=== PATIENT | female | born 1950 | race African-American/Black ===

== ENCOUNTER → 2019-07-01 | Outpatient (CLI) | payer MEDICARE, OTHER ==
[2014-12-25 12:32] VITALS: BP 149/75
[~2019-07-01] MED LIST: ACET325T9 PO; LISI10TA2 PO; MULT1TAB52 PO; OMEP20CA16 PO; SIMV40TA18 PO; SOTA80TA48 PO
--- NOTE | 2019-07-01 11:17 | RAD ---
Bone densitometry 07/01/2019 10:00 AM Indication: Screening exam Comparison Study: Bone densitometry June 14, 2015 Discussion: Bone Densitometry was performed with dual photon absorption of the lumbar spine and proximal right femur Lumbar Spine: Bone average density is 1.138 g/cm2 for L1-L4. T-Score is -0.4. (Prior T score -0.4) Right femoral neck: Bone average density is 0.744g/cm2. T-Score is -1.7. (Prior T score -1.6) IMPRESSION: Osteopenia, with bone mineral density similar to prior exam Note: Definitions established by the World Health Organization: Normal: T-score is -1.0 or above. Osteopenia: T-score is between -1.0 and -2.5. Osteoporosis: T-score is -2.5 or below. Electronically signed by: Gabriele Payne MD (07/01/2019 11:14 AM) [id number]
== END | disposition home or self-care (01) ==
LOC: DXRAD 09:34
PROVIDERS: ATTEND Family Medicine
DX: Z13.820 Encounter for screening for osteoporosis (principal); M85.88 Other specified disorders of bone density and structure, other site
CPT/HCPCS: 77080

== ENCOUNTER → 2019-12-29 | Outpatient (CLI) | payer MEDICARE, OTHER ==
[2014-12-25 12:32] VITALS: BP 149/75
[~2019-12-29] MED LIST changes: +MULT-445 PO; -MULT1TAB52 PO
--- NOTE | 2019-12-29 11:18 | RAD ---
EXAM: LEFT SHOULDER 3 VIEWS. HISTORY: Left shoulder pain after injury. COMPARISON: None. FINDINGS: No fractures are identified. A large loose body in the subacromial space measures 2.1 x 1.3 cm. There is inferior subluxation of the humeral head with respect to the glenoid. A moderate to large osteophytes indicate moderate glenohumeral osteoarthritis. Acromioclavicular osteoarthritis is mild for patient age. Inferiorly directed spurs measure 2 mm. A left-sided pacemaker has its leads in the right atrium and right ventricle. There are atherosclerotic calcifications of the aorta. IMPRESSION: 1. Moderate left glenohumeral osteoarthritis. A large loose body is in the subacromial space, interposed between the acromion and humeral head. Humeral head is inferiorly subluxed, suggesting mass effect from the loose body. Electronically signed by: Zoran Maravilla MD (12/29/2019 11:14 AM) [id number]
== END | disposition home or self-care (01) ==
LOC: DXRAD 10:13
PROVIDERS: ATTEND Family Medicine
DX: S43.032A Inferior subluxation of left humerus, initial encounter (principal); M19.012 Primary osteoarthritis, left shoulder; M24.012 Loose body in left shoulder; M25.712 Osteophyte, left shoulder; I70.0 Atherosclerosis of aorta; X58.XXXA Exposure to other specified factors, initial encounter; Y93.89 Activity, other specified; Y92.89 Other specified places as the place of occurrence of the external cause; Y99.8 Other external cause status
CPT/HCPCS: 73030

== ENCOUNTER → 2020-04-27 | Outpatient (CLI) | payer MEDICARE, OTHER ==
[2014-12-25 12:32] VITALS: BP 149/75
--- NOTE | 2020-05-02 14:08 | RAD ---
DATE: 04/27/2020 3:10 PM EXAM: MAMMO ROGE SCREENING BILATERAL HISTORY: routine screening evaluation. COMPARISON: 01/02/2017 Bilateral CC and MLO views of the breasts were performed. Bilateral breast tomosynthesis was performed in CC and MLO projections. This study was interpreted with the benefit of Computerized Aided Detection (CAD). FINDINGS: Breast Density: SCATTERED The breast parenchyma shows scattered fibroglandular densities. Breast parenchyma level B No suspicious masses, microcalcifications or architectural distortion is present to suggest malignancy in either breast. The visualized axillae are unremarkable. IMPRESSION: No mammographic evidence of malignancy. BI-RADS CATEGORY: 1 NEGATIVE RECOMMENDED FOLLOW-UP: 12M 12 MONTH FOLLOW-UP Annual screening mammography is recommended, unless clinically indicated sooner based on symptoms or change in physical exam. PQRS compliance statement: Patient information was entered into a reminder system with a target due date for the next mammogram. Mammography is a sensitive method for finding small breast cancers, but it does not detect them all and is not a substitute for careful clinical examination. A negative mammogram does not negate a clinically suspicious finding and should not result in delay in biopsying a clinically suspicious abnormality. "Our facility is accredited by the [employer] Mammography Program."
== END ==
LOC: MAMMO 15:03
PROVIDERS: ATTEND Family Medicine
DX: Z12.31 Encounter for screening mammogram for malignant neoplasm of breast (principal)
CPT/HCPCS: 77063; 77067

== ENCOUNTER → 2020-05-25 | Outpatient (CLI) | payer MEDICARE, OTHER ==
[2014-12-25 12:32] VITALS: BP 149/75
--- NOTE | 2020-05-25 15:43 | RAD ---
Noncontrast CT scan of the chest for follow-up of pulmonary nodules. No comparisons available. TECHNIQUE: Contiguous axial CT images are obtained through the chest. Sagittal and coronal reformatio ns are evaluated. IV contrast was not administered. FINDINGS: Dual-lead pacemaker is noted. No suspicious mediastinal, hilar, or axillary lymphadenopathy is evident. Cardiomegaly is present. Evaluation of the upper abdominal organs is limited by lack of IV contrast with no gross morphologic abnormalities identified. Degenerative changes of the shoulders and thoracic spine are seen with no significant osseous abnormalities identified. There is a 4 mm no dule peripherally in the lateral aspect the right lower lobe on series 2 image #138. There is a 3 mm nodule in posterior aspect of the superior segment left lower lobe on image 119 of the same series. N o other lung nodules or masses are identified. Central airways are patent. No pleural effusion or pul monary edema is evident. IMPRESSION: 1. Multiple small solid pulmonary nodules, largest which measures 4.4 mm in the right lower lobe. Fol low-up according to Fleischner Society guidelines for multiple solitary nodules less than 6 mm is rec ommended. Fleischner Society recommendations (Radiology 2017): SOLID NODULES Solitary solid nodule <6 mm - low-risk patient: no routine follow-up required - high-risk patient: optional CT at 12 months (particularly with suspicious nodule morphology and/or upper lobe location) Solitary solid nodule 6-8 mm - low-risk patient: CT at 6-12 months, then consider CT at 18-24 months - high risk patient: CT at 6-12 months, then if persistent CT at 18-24 months Solitary solid nodule >8 mm - consider CT at 3 months, PET/CT, or tissue sampling Multiple solid nodules <6 mm - low-risk patient: no routine follow-up required - high-risk patient: optional CT at 12 months Multiple solid nodules > or = 6 mm - low-risk patient: CT at 3-6 months, then consider CT at 18-24 months - high risk patient: CT at 3-6 months, then if persistent CT at 18-24 months SUBSOLID NODULES Solitary ground glass nodule <6 mm - no routine follow-up required Solitary ground glass nodule > or = 6 mm - CT at 6-12 months, then if persistent CT every 2 years until 5 years Solitary part solid nodule > or = 6mm - CT at 3-4 months, the if persistent and solid component remains <6 mm, annual CT until 5 years Multiple subsolid nodules <6 mm - CT at 3-6 months, then if stable consider CT at 2 and 4 years in high risk patients Multiple subsolid nodules > or = 6 mm - CT at 3-6 months, then subsequent management based on the most suspicious nodule(s) Electronically signed by: Aleks Mabry MD (05/25/2020 3:41 PM) [id number]
== END ==
LOC: CT 09:11
PROVIDERS: ATTEND Family Medicine
DX: R91.1 Solitary pulmonary nodule (principal); I51.7 Cardiomegaly; Z95.0 Presence of cardiac pacemaker
CPT/HCPCS: 71250

== ENCOUNTER 2020-12-11 19:58 | Emergency (ER) | payer MEDICARE, OTHER ==
[~2020-12-11] VITALS: Ht 144.8 cm; Wt 78.8 kg
[~2020-12-11 19:58] MED LIST changes: +LISI10TA16 PO; -LISI10TA2 PO
--- NOTE | 2020-12-11 20:01 | PHYS DOC ---
Past History Past Medical History: A-Fib, Arthritis, Arrhythmia, High Cholesterol, Heart Disease, Hypertension, Other Past Surgical History: Appendectomy, Hysterectomy, Other Alcohol Use: None Drug Use: None General Adult HPI: HPI: ".. I was coming out shower.. and slipped.. caught myself, but slipped again.. landed on Lt side.. that was about 2:00 .. but I still hurting really bad.. mainly in my abdomen and chest.. " " We were to go to a cook out.. but I can't hardly move because of the pain... " Patient is a 70 year old female who presents with above hx of fall. Fall initially at 1400 hrs. But has had no improvement of her abdomen and chest pain. Patient currently rates pain is 10 out of 10. Worse if she twists or turns. Patient is on Eliquis for her A. fib a flutter. Patient does have complaints of arm and leg pain but she considers this minor as compared to her chest and abdomen pain. Patient does have a pacer defibrillator. Patient states any movement exacerbates her chest and abdomen pain. Patient has past history of a trip and fall back in 12/2014. Does have past medical history of arthritis, elevated cholesterol, coronary artery disease, hypertension, A. fib a flutter, GERD, arthritis, CHF, and hypertension. Patient has had previous surgeries of patient placement 2014 for A. fib a flutter. Appendectomy and hysterectomy hemorrhoidectomy. Pt. follows with Dr. Price as primary. Review of Systems: Review of Systems: Constitutional: Denies fever or chills Eyes: Denies change in visual acuity HENT: Denies nasal congestion or sore throat Respiratory: Denies cough or shortness of breath Cardiovascular: Denies chest pain or edema GI: Denies abdominal pain, nausea, vomiting, bloody stools or diarrhea : Denies dysuria Musculoskeletal: Denies back pain or joint pain Integument: Denies rash Neurologic: Denies headache, focal weakness or sensory changes Endocrine: Denies polyuria or polydipsia Lymphatic: Denies swollen glands Psychiatric: Denies depression or anxiety Family History: Family History: Noncontributory to presentation Current Medications: Current Meds: See nursing for home meds Allergies: Allergies: Allergies Coded Allergies Type Severity Reaction Last Updated Verified latex Allergy Intermediate rash 12/25/14 Yes ibuprofen Allergy Mild rash 12/25/14 Yes Physical Exam: PE: Constitutional: Pt. in acute distress, non-toxic appearance. [] HENT: Normocephalic, atraumatic, bilateral external ears normal, oropharynx moist, no oral exudates, nose normal. [] Eyes: PERRLA, EOMI, conjunctiva normal, no discharge. [] Neck: Normal range of motion, no tenderness, supple, no stridor. [] Cardiovascular:Heart rate regular rhythm, no murmur [] Lungs & Thorax: Bilateral breath sounds equal apex on auscultation []. Chest wall tenderness bilateral lower floating ribs. More so on the left. Patient on left upper chest wall Abdomen: Bowel sounds decreased, soft, spleen and liver tenderness, no masses, no pulsatile masses. [] Old surgery scars. Skin: Warm, dry, no erythema, no rash. Contusions upper arms and legs Back: No tenderness, no CVA tenderness. [] Extremities: No tenderness, no cyanosis, no clubbing, ROM intact, no edema. Arthritic changes. Neurologic: Alert and oriented X 3, normal motor function, normal sensory function, no focal deficits noted. [] Psychologic: Affect anxious, judgement normal, mood normal. [] EKG: EKG: My interpretation of EKG shows a sinus rate at 60 bpm. Intraventricular block. Anteroseptal changes. But no findings acute STEMI or contralateral changes. No obvious pacer cameron. Abnormal EKG. EKG at 2030 hrs. Radiology/Procedures: Radiology/Procedures: [address] [address] IMAGING REPORT Signed PATIENT: REGAN KINNEY ACCOUNT: [id number] : 1950 LOCATION: ER AGE: 70 SEX: F EXAM STATUS: REG ER ORD. PHYSICIAN: CHING CONWAY MD REASON: fall in shower,chest wall and spleen pain- on eliquis. 60mls omni PROCEDURE: CT CHEST ABD PELVIS W/CONTRAST CT of the chest abdomen pelvis with contrast. HISTORY: Fall in shower, chest wall pain spleen pain, on Eliquis CT CHEST: CT scan the chest was done using 60 mL Omnipaque 300 contrast. Thyroid is homogeneous. There is within normal limits in size without an aneurysm or dissection. There is no pneumothorax or pleural effusion. There is mild atelectasis in the lung bases without other infiltrates. There is mild linear atelectasis along the left heart. There is arthritis in both shoulders. There is hypertrophic change in the thoracic spine. There is no definite rib fracture. There is no acute thoracic compression fracture. IMPRESSION: 1. Mild atelectasis without other infiltrates. 2. No pneumothorax or pleural effusion. 3. No acute injury noted in the chest. End impression CT abdomen pelvis CT abdomen pelvis was done following CT chest with contrast. Liver is unremarkable. There is no calcified gallstone. Spleen is normal in appearance without injury. Adrenal glands are normal. Pancreas is normal. There is no mass or hydronephrosis in the kidneys. There is a small umbilical hernia. Bladder is moderately distended. Patient's had a hysterectomy. There is mild stool at the rectum. There is no small bowel obstruction. There is no free fluid or free air. Appendix is not identified. There is degenerative disc disease at L5-S1. There is facet arthritis at L4-5 with mild spondylolisthesis. There is no acute lumbar fracture. IMPRESSION: 1. No acute intra-abdominal injury. 2. No acute finding noted in the abdomen or pelvis. PQRS Compliance Statement: One or more of the following individualized dose reduction techniques were utilized for this examination: 1. Automated exposure control 2. Adjustment of the mA and/or kV according to patient size 3. Use of iterative reconstruction technique Electronically signed by: Cristiano Castillo MD (12/11/2020 10:23 PM) [facility] DICTATED AND SIGNED BY: CRISTIANO CASTILLO MD DATE: 12/11/202215 CC: STEPHANIE PRICE MD; CHING CONWAY MD ~MTH0 0 [][place] [address] IMAGING REPORT Signed PATIENT: REGAN KINNEY ACCOUNT: [id number] : 1950 LOCATION: ER AGE: 70 SEX: F EXAM STATUS: REG ER ORD. PHYSICIAN: CHING CONWAY MD REASON: fall in shower, chest and abdomen pain PROCEDURE: ACUTE ABDOMEN SERIES Three-view acute abdominal series. HISTORY: Fall in shower, chest and abdominal pain 3 views were taken for an acute abdominal series. There is arthritis in both shoulders. Heart is mildly enlarged. There is a left pacemaker with atrial ventricular pacing leads. There is no pneumothorax or pleural effusion. There is no free air on the upright view the abdomen. Bowel pattern the aorta abdomen is unremarkable. Pelvic fracture is not evident. IMPRESSION: 1. Cardiomegaly. 2. No acute infiltrates. 3. No bowel obstruction or acute finding noted in the abdomen. Electronically signed by: Cristiano Castillo MD (12/11/2020 8:53 PM) [facility] DICTATED AND SIGNED BY: CRISTIANO CASTILLO MD DATE: 12/11/202050 CC: STEPHANIE PRICE MD; CHING CONWAY MD ~MTH0 0 Heart Score: C/O Chest Pain: Yes HEART Score for Chest Pain: HEART Score for Chest Pain Response (Comments) Value History Moderately Suspicious 1 ECG Nonspecific Repolarizatio 1 Age >45 - < 65 1 Risk Factors 1 or 2 Risk Factors 1 Troponin < Normal Limit 0 Total 4 Risk Factors: Risk Factors: DM, Current or recent (<one month) smoker, HTN, HLP, family history of CAD, obesity. Risk Scores: Score 0 - 3: 2.5% MACE over next 6 weeks - Discharge Home Score 4 - 6: 20.3% MACE over next 6 weeks - Admit for Clinical Observation Score 7 - 10: 72.7% MACE over next 6 weeks - Early Invasive Strategies Course & Med Decision Making: Course & Med Decision Making Pertinent Labs and Imaging studies reviewed. (See chart for details) Ice packs as needed. Tylenol for pain. Follow up with Dr. Price Impression: 1. Slip and Fall 2. Chest Wall Pain-contusion 3. Abdomen pain- contusion 4. Anticoagulated with Eliquis 5. History of A. fib flutter 6. History of osteoarthritis 7. Renal insufficiency BUN 25 creatinine 1.3 8. Diabetes glucose 164 9. Normocytic anemia hemoglobin 11.8 [] Dragon Disclaimer: Dragon Disclaimer: This electronic medical record was generated, in whole or in part, using a voice recognition dictation system. Departure Departure: Referrals: STEPHANIE PRICE MD (PCP) CHING CONWAY MD Dec 11, 2020 20:01
[2020-12-11] MEDS ORDERED: CONTRAST GIVEN. MC PRN (20:30)
[2020-12-11] MEDS ORDERED: IOHEXOL 300 MG/ML 75 ML VIAL. IV ONE (20:30)
[2020-12-11] MEDS ORDERED: MORPHINE SULFATE 10 MG/ML SYRINGE. SQ ONE (20:30)
[2020-12-11] MEDS ORDERED: IOHEXOL 240 MG/ML 50ML VIAL. PO ONE (20:30)
[2020-12-11] MEDS: IV RINGERS SOLUTION,LACTATED 1,000 ML IV SCH ×2 (20:39→22:51)
[2020-12-11 20:43] LABS: BASO # 0.1 x10^3/uL (0.0-0.2); BASO % 1 % (0-3); EOS # 0.2 x10^3/uL (0.0-0.7); EOS % 2 % (0-3); HEMATOCRIT 35.8 % (36.0-47.0); HEMOGLOBIN 11.8 g/dL (12.0-15.5); LYMPH # 3.1 x10^3/uL (1.0-4.8); LYMPH % 42 % (24-48); MEAN CORPUSCULAR HEMOGLOBIN 29 pg (25-35); MEAN CORPUSCULAR HGB CONC 33 g/dL (31-37); MEAN CORPUSCULAR VOLUME 89 fL (79-100); MONO # 0.6 x10^3/uL (0.0-1.1); MONO % 8 % (0-9); NEUT # 3.6 x10^3uL (1.8-7.7); NEUT % 47 % (31-73); PLATELET COUNT 235 x10^3/uL (140-400); RED BLOOD COUNT 4.01 x10^6/uL (3.50-5.40); RED CELL DISTRIBUTION WIDTH 13.5 % (11.5-14.5); WHITE BLOOD COUNT 7.5 x10^3/uL (4.0-11.0)
[2020-12-11 20:51] LABS: CALCIUM 8.7 mg/dL (8.5-10.1); CREATININE 1.3 mg/dL (0.6-1.0); GFR 48.9; POTASSIUM 3.6 mmol/L (3.5-5.1)
--- NOTE | 2020-12-11 20:55 | RAD ---
Three-view acute abdominal series. HISTORY: Fall in shower, chest and abdominal pain 3 views were taken for an acute abdominal series. There is arthritis in both shoulders. Heart is mild ly enlarged. There is a left pacemaker with atrial ventricular pacing leads. There is no pneumothorax or pleural effusion. There is no free air on the upright view the abdomen. Bowel pattern the aorta a bdomen is unremarkable. Pelvic fracture is not evident. IMPRESSION: 1. Cardiomegaly. 2. No acute infiltrates. 3. No bowel obstruction or acute finding noted in the abdomen. Electronically signed by: Cristiano Castillo MD (12/11/2020 8:53 PM) [facility]
--- NOTE | 2020-12-11 21:03 | EKG ---
[facility] ED [facility] [place] [id number] Test Date: 2020-12-11 Test Time: 20:30:48 Pat Name: REGAN KINNEY Department: Room: Gender: F Hose Handler: AUGUSTUS : 1950 Requested By: CHING CONWAY Order Number: [id number] Reading MD: Walter Lares Measurements Intervals [place] Rate: 60 P: OR: QRS: 185 QRSD: 180 T: 130 QT: 482 QTc: 482 Interpretive Statements PROBABLE ATRIAL PACED RHYTHM NON SPECIFIC INTRAVENTRICULAR BLOCK ABNORMAL ECG RI6.02 No previous ECG available for comparison Electronically Signed On 12-14-2020 12:03:12 CDT by Walter Lares
[2020-12-11 21:04] LABS: ALBUMIN 3.8 g/dL (3.4-5.0); DIRECT BILIRUBIN 0.1 mg/dL (0.0-0.2); MAGNESIUM 2.3 mg/dL (1.8-2.4); TOTAL BILIRUBIN 0.4 mg/dL (0.2-1.0); TOTAL PROTEIN 6.8 g/dL (6.4-8.2)
--- NOTE | 2020-12-11 22:25 | RAD ---
CT of the chest abdomen pelvis with contrast. HISTORY: Fall in shower, chest wall pain spleen pain, on Eliquis CT CHEST: CT scan the chest was done using 60 mL Omnipaque 300 contrast. Thyroid is homogeneous. There is withi n normal limits in size without an aneurysm or dissection. There is no pneumothorax or pleural effusi on. There is mild atelectasis in the lung bases without other infiltrates. There is mild linear atele ctasis along the left heart. There is arthritis in both shoulders. There is hypertrophic change in th e thoracic spine. There is no definite rib fracture. There is no acute thoracic compression fracture. IMPRESSION: 1. Mild atelectasis without other infiltrates. 2. No pneumothorax or pleural effusion. 3. No acute injury noted in the chest. End impression CT abdomen pelvis CT abdomen pelvis was done following CT chest with contrast. Liver is unremarkable. There is no calci fied gallstone. Spleen is normal in appearance without injury. Adrenal glands are normal. Pancreas is normal. There is no mass or hydronephrosis in the kidneys. There is a small umbilical hernia. Bladde r is moderately distended. Patient's had a hysterectomy. There is mild stool at the rectum. There is no small bowel obstruction. There is no free fluid or free air. Appendix is not identified. There is degenerative disc disease at L5-S1. There is facet arthritis at L4-5 with mild spondylolisthesis. The re is no acute lumbar fracture. IMPRESSION: 1. No acute intra-abdominal injury. 2. No acute finding noted in the abdomen or pelvis. PQRS Compliance Statement: One or more of the following individualized dose reduction techniques were utilized for this examinat ion: 1. Automated exposure control 2. Adjustment of the mA and/or kV according to patient size 3. Use of iterative reconstruction technique Electronically signed by: Cristiano Castillo MD (12/11/2020 10:23 PM) [facility]
[2020-12-11 22:50] VITALS: BP 140/74
== END 2020-12-11 22:53 | disposition home health service (06) ==
LOC: ER 19:58
DX: S20.219A Contusion of unspecified front wall of thorax, initial encounter (principal); S30.1XXA Contusion of abdominal wall, initial encounter; E78.5 Hyperlipidemia, unspecified; I10 Essential (primary) hypertension; Z90.710 Acquired absence of both cervix and uterus; W01.0XXA Fall on same level from slipping, tripping and stumbling without subsequent striking against object, initial encounter; Y93.89 Activity, other specified; Y92.89 Other specified places as the place of occurrence of the external cause; Y99.8 Other external cause status
CPT/HCPCS: 36415; 71260; 74022; 74177; 80048; 80076; 82550; 83735; 83880; 84484; 85025; 93005; 96360; 96361; 96372; 99285; J2270; J7120; Q9966; Q9967

== ENCOUNTER → 2021-05-01 | Outpatient (CLI) | payer MEDICARE, OTHER ==
--- NOTE | 2021-05-01 14:08 | RAD ---
INDICATION: 71 years of age asymptomatic female patient presents for screening mammography. TECHNIQUE: Full field craniocaudal and mediolateral oblique images of both breasts were obtained usi ng digital technique with tomosynthesis and also analyzed with computer-aided detection software. COMPARISON: Prior mammographic imaging dating 01/21/2018 01/02/2017 04/27/2020 01/28/2019. BREAST COMPOSITION: Category B: There are scattered fibroglandular densities. FINDINGS: Benign calcifications are present. The parenchymal pattern appears stable. No suspicious masses, microcalcifications or architectural distortion is present to suggest malignanc y in either breast. The visualized axillae are unremarkable. IMPRESSION: No mammographic evidence of malignancy. RECOMMENDATION: Annual screening mammography is recommended, unless clinically indicated sooner based on symptoms or change in physical exam. BIRADS 2: BENIGN This study was interpreted with the benefit of Computerized Aided Detection (CAD). Patient information is entered into the reminder system with a target due date for the next screening mammogram. Mammography is the most sensitive method for finding small breast cancers, but it does not detect the m all and is not a substitute for careful clinical examination. A negative mammogram does not negate a clinically suspicious finding and should not result in delay in biopsying a clinically suspicious a bnormality. "Our facility is accredited by the [employer] Mammography Program." Electronically signed by: Dave Hinojosa MD (05/01/2021 2:06 PM) [id number]
== END ==
LOC: MAMMO 08:15
PROVIDERS: ATTEND Family Medicine
DX: Z12.31 Encounter for screening mammogram for malignant neoplasm of breast (principal)
CPT/HCPCS: 77063; 77067